=== PATIENT | male | born 1990 | race Caucasian/White ===

== ENCOUNTER 2020-10-26 20:58 | Emergency (ER) | payer SELFPAY ==
[2020-10-26] MEDS ORDERED: Ketorolac Tromethamine 30 MG/ML VIAL ONE (23:37)
[2020-10-27] LABS: Bacteria/HPF None Seen HPF (None Seen); Bilirubin Negative (Negative); Blood, Urine Negative (Negative); Calcium Oxalate Crystals Rare HPF (None Seen); Clarity Clear (Clear); Glucose, Urine (Dipstick) 150 mg/dL (Negative); Ketone, Urine Negative (Negative); Leukocyte Negative Leu/uL (Negative); Nitrite Negative (Negative); Protein, Urine (Dipstick) 30 mg/dL (Neg-Trace); RBC/HPF 0-3 HPF (0-3); Specific Gravity, Urine 1.037 (1.002-1.036); Squamous Epithelial 0-3 HPF (0-3); Urobilinogen 3 mg/dL (Less than 2)
[2020-10-27 00:02] LABS: Amphetamine Not Detected (NotDetected); Barbiturates Screen Not Detected (NotDetected); Benzodiazepine Screen Not Detected (NotDetected); Cocaine Metabolite Screen Not Detected (NotDetected); Medtox Control Line Valid? VALID (VALID); Medtox Reader # READER 4; Methadone Not Detected (NotDetected); Methamphetamine Not Detected (NotDetected); Opiate Screen Not Detected (NotDetected); Oxycodone Screen Not Detected (NotDetected); Phencyclidine (PCP) Not Detected (NotDetected); THC/Cannabinoid Screen Detected (NotDetected); Tricyclic Screen Not Detected (NotDetected)
--- NOTE | 2020-10-27 09:14 | MRI ---
PRELIMINARY REPORT/[facility]/EMERGENCY AFTER HOURS PROCEDURE EXAM: MR Lumbar Spine with and without Intravenous Contrast. CLINICAL HISTORY: Patient c/o LBP with radiating pain down left leg that stops at knee x 2 weeks. r/o epidural abscess . Patient denies any injury, sx or fever. No previous spine imaging. TECHNIQUE: Magnetic resonance images of the lumbar spine with and without intravenous contrast in multiple plane s. CONTRAST: With and without; 15ml Multihance 0 COMPARISON: None provided. FINDINGS: VERTEBRAE: No acute fracture or focal osseous lesion. ALIGNMENT: Bony alignment is anatomic. SPINAL CORD AND CAUDA EQUINA: No abnormal cord signal or cauda equina mass. DEGENERATIVE FINDINGS: L1-L2: No central canal or foraminal stenosis. Unremarkable intervertebral disc. L2-L3: No central canal or foraminal stenosis. Unremarkable intervertebral disc. L3-L4: No central canal or foraminal stenosis. Unremarkable intervertebral disc. L4-L5: No central canal or foraminal stenosis. Unremarkable intervertebral disc. L5-S1: No central canal or foraminal stenosis. Unremarkable intervertebral disc. PARASPINAL SOFT TISSUES: Unremarkable paraspinal soft tissues. IMPRESSION: No acute fracture seen. No epidural abscess visualized. ELECTRONICALLY SIGNED BY: Jess Ibarra MD Oct 27, 2020 1:13:30 AM [employer] This report is intended for review by the ordering physician only, in accordance of law. If you recei ve this report in error, please call [facility] at [phone]. FINAL REPORT EMERGENCY AFTER HOURS MRI LUMBAR SPINE: I agree with the preliminary report provided by [facility]. No appreciable central canal or an ral foraminal narrowing. There is mild spondylosis of the lumbar spine. There is no evidence to suggest epidural abscess. Transcribed Date/Time: 10/27/2020 9:19 AM
== END 2020-10-27 02:47 | disposition home or self-care (01) ==
LOC: ERS 20:58
DX: M54.5 Low back pain (principal)
CPT/HCPCS: 72158; 80306; 81003; 81015; 96374; J1885